=== PATIENT | male | born 1950 | race American Indian/Alaskan Native ===

== ENCOUNTER 2020-12-11 15:27 | Emergency (ER) | payer MEDICARE, OTHER ==
--- NOTE | 2020-12-11 16:32 | Emergency Department Report ---
ED General Adult HPI - General Chief complaint: Abdominal Pain Stated complaint: ABD PAIN Time Seen by Provider: 12/11/20 16:07 Source: patient, EMS Mode of arrival: Stretcher Limitations: No Limitations - History of Present Illness Initial comments: The patient presents [facility] the emergency department [facility] a local [facility] for evaluation of his abdomen. Patient states he has no abdominal pain but they are concerned because he is having diarrhea. Patient denies any blood in the stool or foul-smelling stool. Patient denies chest pain, shortness breath, or headache. The patient states his stool is actually not diarrhea like but instead just loose. He states every time he goes to pass gas his course loose stool. Patient denies fever. -: unknown Severity scale (0 -10): 0 Improves with: none Worsens with: none Associated Symptoms: denies other symptoms Treatments Prior to Arrival: none - Related Data Home Medications Medication Instructions Recorded Confirmed Last Taken Acetaminophen [Mapap] 650 mg PO Q4H PRN 02/15/20 02/15/20 Unknown Aspirin [Adult Aspirin] 81 mg PO QDAY 02/15/20 02/15/20 Unknown AtorvaSTATin 10 mg PO QHS 02/15/20 02/15/20 Unknown Donepezil HCl [Donepezil HCl Odt] 10 mg PO QHS 02/15/20 02/15/20 Unknown Dulaglutide [Trulicity] 1.5 mg SQ 1XW 02/15/20 02/15/20 Unknown Folic Acid [Folvite] 1 mg PO DAILY 02/15/20 02/15/20 Unknown Insulin Glargine [Lantus VIAL] 56 units SQ QAM 02/15/20 02/15/20 Unknown Lispro Insulin [HumaLOG] 0 units SQ BID 02/15/20 02/15/20 Unknown Meloxicam [Mobic] 15 mg PO DAILY 02/15/20 02/15/20 Unknown Metformin HCl [metFORMIN] 1,000 mg PO BID 02/15/20 02/15/20 Unknown amLODIPine 5 mg PO DAILY 02/15/20 02/15/20 Unknown Previous Rx's Medication Instructions Recorded Last Taken Type levETIRAcetam [Keppra TAB] 750 mg PO BID #60 tablet 02/15/20 Unknown Rx Amoxicillin/Potassium Clav 1 each PO BID #20 tablet 12/11/20 Unknown Rx [Augmentin 875-125 Tablet] Allergies Allergy/AdvReac Type Severity Reaction Status Date / Time No Known Allergies Allergy Verified 02/13/20 14:50 ED Review of Systems ROS: Stated complaint: ABD PAIN Other details as noted in HPI Comment: All other systems reviewed and negative Constitutional: denies: chills, fever Eyes: denies: eye pain, eye discharge, vision change ENT: denies: ear pain, throat pain Respiratory: denies: cough, shortness of breath, wheezing Cardiovascular: denies: chest pain, palpitations Endocrine: no symptoms reported Gastrointestinal: diarrhea. denies: abdominal pain, nausea Genitourinary: denies: urgency, dysuria Musculoskeletal: denies: back pain, joint swelling, arthralgia Skin: denies: rash, lesions Neurological: denies: headache, weakness, paresthesias Psychiatric: denies: anxiety, depression Hematological/Lymphatic: denies: easy bleeding, easy bruising ED Past Medical Hx - Past Medical History Hx Hypertension: Yes Hx CVA: Yes Hx Heart Attack/AMI: No Hx Congestive Heart Failure: No Hx Diabetes: Yes Hx Deep Vein Thrombosis: No Hx Pulmonary Embolism: No Hx Liver Disease: No Hx Renal Disease: No Hx Arthritis: No Hx Seizures: Yes Hx Asthma: No Hx COPD: No Hx Tuberculosis: No Hx Dementia: Yes Hx HIV: No - Surgical History Hx Coronary Stent: No Hx Pacemaker: No Hx Internal Defibrillator: No - Social History Smoking Status: Unknown if ever smoked - Medications Home Medications: Home Medications Medication Instructions Recorded Confirmed Last Taken Type Acetaminophen [Mapap] 650 mg PO Q4H PRN 02/15/20 02/15/20 Unknown History Aspirin [Adult Aspirin] 81 mg PO QDAY 02/15/20 02/15/20 Unknown History AtorvaSTATin 10 mg PO QHS 02/15/20 02/15/20 Unknown History Donepezil HCl [Donepezil HCl Odt] 10 mg PO QHS 02/15/20 02/15/20 Unknown History Dulaglutide [Trulicity] 1.5 mg SQ 1XW 02/15/20 02/15/20 Unknown History Folic Acid [Folvite] 1 mg PO DAILY 02/15/20 02/15/20 Unknown History Insulin Glargine [Lantus VIAL] 56 units SQ QAM 02/15/20 02/15/20 Unknown History Lispro Insulin [HumaLOG] 0 units SQ BID 02/15/20 02/15/20 Unknown History Meloxicam [Mobic] 15 mg PO DAILY 02/15/20 02/15/20 Unknown History Metformin HCl [metFORMIN] 1,000 mg PO BID 02/15/20 02/15/20 Unknown History amLODIPine 5 mg PO DAILY 02/15/20 02/15/20 Unknown History levETIRAcetam [Keppra TAB] 750 mg PO BID #60 tablet 02/15/20 Unknown Rx Amoxicillin/Potassium Clav 1 each PO BID #20 tablet 12/11/20 Unknown Rx [Augmentin 875-125 Tablet] ED Physical Exam - General Limitations: No Limitations General appearance: alert, in no apparent distress - Head Head exam: Present: atraumatic, normocephalic - Eye Eye exam: Present: normal appearance, PERRL, EOMI - ENT ENT exam: Present: mucous membranes moist - Neck Neck exam: Present: normal inspection - Respiratory Respiratory exam: Present: normal lung sounds bilaterally. Absent: respiratory distress - Cardiovascular Cardiovascular Exam: Present: regular rate, normal rhythm. Absent: systolic murmur, diastolic murmur, rubs, gallop - GI/Abdominal GI/Abdominal exam: Present: soft, distended, normal bowel sounds, other (The patient's abdomen is distended but he states that his belly is always large like that and laughs about it. Patient denies any tenderness on palpation on my exam.). Absent: tenderness - Rectal Rectal exam: Present: deferred - Extremities Exam Extremities exam: Present: normal inspection - Back Exam Back exam: Present: normal inspection - Neurological Exam Neurological exam: Present: alert, oriented X3, CN II-XII intact. Absent: motor sensory deficit - Psychiatric Psychiatric exam: Present: normal affect, normal mood - Skin Skin exam: Present: warm, dry, intact, normal color. Absent: rash ED Course Vital Signs 12/11/20 12/11/20 12/11/20 15:53 16:18 16:31 Pulse Rate 86 Respiratory 18 Rate Blood Pressure 136/76 156/82 Blood Pressure 136/76 [Left] O2 Sat by Pulse 98 99 98 Oximetry 12/11/20 12/11/20 12/11/20 16:45 17:01 17:15 Pulse Rate Respiratory Rate Blood Pressure 156/82 156/82 162/82 Blood Pressure [Left] O2 Sat by Pulse 100 98 98 Oximetry 12/11/20 12/11/20 12/11/20 17:31 17:45 18:01 Pulse Rate Respiratory Rate Blood Pressure 162/82 162/82 162/82 Blood Pressure [Left] O2 Sat by Pulse 99 99 99 Oximetry 12/11/20 12/11/20 12/11/20 18:16 18:31 18:45 Pulse Rate Respiratory Rate Blood Pressure 189/85 189/85 189/85 Blood Pressure [Left] O2 Sat by Pulse 97 98 99 Oximetry 12/11/20 12/11/20 12/11/20 19:01 19:15 19:31 Pulse Rate Respiratory Rate Blood Pressure 189/85 164/84 164/84 Blood Pressure [Left] O2 Sat by Pulse 97 97 98 Oximetry 12/11/20 12/11/20 12/11/20 19:59 20:01 20:15 Pulse Rate Respiratory Rate Blood Pressure 164/84 164/84 150/87 Blood Pressure [Left] O2 Sat by Pulse 98 96 98 Oximetry 12/11/20 20:29 Pulse Rate 89 Respiratory 18 Rate Blood Pressure Blood Pressure [Left] O2 Sat by Pulse Oximetry ED Medical Decision Making - Lab Data Result diagrams: 12/11/20 17:23 12/11/20 17:20 Lab Results 12/11/20 12/11/20 Range/Units 17:20 17:23 WBC 7.2 (4.5-11.0) K/mm3 RBC 4.35 (3.65-5.03) M/mm3 Hgb 12.9 (11.8-15.2) gm/dl Hct 38.5 (35.5-45.6) % MCV 89 (84-94) fl MCH 30 (28-32) pg MCHC 34 (32-34) % RDW 13.9 (13.2-15.2) % Plt Count 339 (140-440) K/mm3 Lymph % (Auto) 36.0 H (13.4-35.0) % Osborne % (Auto) 8.7 H (0.0-7.3) % Eos % (Auto) 4.6 H (0.0-4.3) % Baso % (Auto) 1.0 (0.0-1.8) % Lymph # (Auto) 2.6 (1.2-5.4) K/mm3 Osborne # (Auto) 0.6 (0.0-0.8) K/mm3 Eos # (Auto) 0.3 (0.0-0.4) K/mm3 Baso # (Auto) 0.1 (0.0-0.1) K/mm3 Seg Neutrophils % 49.7 (40.0-70.0) % Seg Neutrophils # 3.6 (1.8-7.7) K/mm3 Sodium 140 (137-145) mmol/L Potassium 4.0 (3.6-5.0) mmol/L Chloride 100.7 (98-107) mmol/L Carbon Dioxide 27 (22-30) mmol/L Anion Gap 16 mmol/L BUN 8 L (9-20) mg/dL Creatinine 0.7 L (0.8-1.3) mg/dL Estimated GFR > 60 ml/min BUN/Creatinine Ratio 11 % Glucose 91 (75-100) mg/dL Calcium 9.5 (8.4-10.2) mg/dL Total Bilirubin 0.30 (0.1-1.2) mg/dL AST 12 (5-40) units/L ALT 6 L (7-56) units/L Alkaline Phosphatase 65 (35-129) units/L Total Protein 7.4 (6.3-8.2) g/dL Albumin 4.0 (3.9-5) g/dL Albumin/Globulin Ratio 1.2 % Lipase 12 L (13-60) units/L - Medical Decision Making Reviewed the patient's imaging report from Dr. Timoteo Larson's office shows the patient has wall thickening of the distal left colon with narrowing. Patient was sent here for CT Discussed results with patient Critical care attestation.: If time is entered above; I have spent that time in minutes in the direct care of this critically ill patient, excluding procedure time. ED Disposition Clinical Impression: Colitis Disposition: DC-01 TO HOME OR SELFCARE Is pt being admited?: No Does the pt Need Aspirin: No Condition: Stable Instructions: Colitis Additional Instructions: return if worse Prescriptions: Amoxicillin/Potassium Clav [Augmentin 875-125 Tablet] 1 each PO BID #20 tablet Time of Disposition: 21:03
[2020-12-11 17:35] LABS: Basophils # (Auto) 0.1 K/mm3 (0.0-0.1); Eosinophils # (Auto) 0.3 K/mm3 (0.0-0.4); Eosinophils % (Auto) 4.6 % (0.0-4.3); Hematocrit 38.5 % (35.5-45.6); Hemoglobin 12.9 gm/dl (11.8-15.2); Lymphocytes # (Auto) 2.6 K/mm3 (1.2-5.4); Mean Corpuscular HGB Conc 34 % (32-34); Mean Corpuscular Volume 89 fl (84-94); Monocytes # (Auto) 0.6 K/mm3 (0.0-0.8); Monocytes % (Auto) 8.7 % (0.0-7.3); Platelet Count 339 K/mm3 (140-440); Red Blood Count 4.35 M/mm3 (3.65-5.03); Red Cell Distribution Width 13.9 % (13.2-15.2)
[2020-12-11 17:58] LABS: Alanine Aminotransferase 6 units/L (7-56); Blood Urea Nitrogen 8 mg/dL (9-20); Calcium 9.5 mg/dL (8.4-10.2); Hemolysis Index 28
[2020-12-11 18:04] LABS: BUN/Creatinine Ratio 11
--- NOTE | 2020-12-11 20:29 | Cat Scan Report ---
CT ABDOMEN AND PELVIS WITH CONTRAST INDICATION / CLINICAL INFORMATION: Colitis. TECHNIQUE: Axial CT images were obtained through the abdomen and pelvis after IV contrast. All CT sc ans at this location are performed using CT dose reduction for ALARA by means of automated exposure c ontrol. COMPARISON: None available. FINDINGS: LOWER CHEST: Mild bibasilar volume loss. Cardiac enlargement without pericardial effusion. There is i ncidentally noted bilateral gynecomastia. LIVER: No significant abnormality GALLBLADDER/BILIARY TREE: Cholelithiasis. No biliary dilatation. PANCREAS: Calcifications about the pancreatic head with pancreatic duct dilatation involving the dist al body and tail, consistent with sequela of chronic pancreatitis. No evidence of acute pancreatitis. SPLEEN: No significant abnormality ADRENALS: No significant abnormality KIDNEYS / URETER: No significant abnormality URINARY BLADDER: Bladder is partially decompressed, though grossly unremarkable. REPRODUCTIVE ORGANS: No significant abnormality STOMACH / SMALL BOWEL: Stomach and small bowel are normal in caliber. No evidence of bowel inflammati on. COLON: There is mild mural thickening of the distal sigmoid and rectum. There is diffuse gaseous dist ention of the colon proximally. The appendix is normal in caliber. LYMPH NODES: No significant adenopathy. VASCULATURE: Severe carotid disease with severe right and moderate left narrowing of the origins of t he renal arteries. Postoperative changes of the left inguinal region. There is severe atherosclerotic disease involving the distal right common femoral artery, which is not well evaluated on this study. OTHER: No free air, free fluid, or focal fluid collection is identified. SKELETAL SYSTEM: No acute osseous findings. IMPRESSION: 1. Mild mural thickening of the distal sigmoid and rectum, may reflect infectious or inflammatory pro ctocolitis. 2. Otherwise, no acute abnormality of the abdomen or pelvis. 3. Extensive chronic and incidental findings detailed above. Signer Name: Alan Bautista MD Signed: 12/11/2020 8:25 PM Workstation Name: [id number]
[2020-12-12 00:17] VITALS: BP 170/81
== END 2020-12-12 00:36 | disposition home or self-care (01) ==
LOC: ED 15:27
DX: K52.9 Noninfective gastroenteritis and colitis, unspecified (principal); E11.9 Type 2 diabetes mellitus without complications; R56.9 Unspecified convulsions; F03.90 Unspecified dementia, unspecified severity, without behavioral disturbance, psychotic disturbance, mood disturbance, and anxiety; Z79.2 Long term (current) use of antibiotics; Z79.899 Other long term (current) drug therapy
CPT/HCPCS: 36415; 74177; 80053; 83690; 85025; 99284; Q9967